=== PATIENT | male | born 1970 | race Caucasian/White ===

== ENCOUNTER 2024-06-25 11:44 | Emergency (ER) | payer SELFPAY ==
[~2024-06-25] VITALS: Ht 180.3 cm; Wt 100.0 kg
[2024-06-25 11:50] VITALS: O2SAT 100
[2024-06-25] MEDS ORDERED: FLUORESCEIN SODIUM 1MG/STRIP LEFTEYE ONE (15:45)
[2024-06-25] MEDS ORDERED: TETRACAINE 0.5% OPHTH DROPS 4ML LEFTEYE ONE (15:45)
[2024-06-25] MEDS ORDERED: TOBR3.5O LEFTEYE (16:04)
[2024-06-25] MEDS ORDERED: PROP1DRO2 MT (16:07)
[2024-06-25 16:40] VITALS: BP 140/91; PULSE 64; RESP 18; TEMP 36.8; O2SAT 96
== END 2024-06-25 16:41 | disposition home or self-care (01) ==
LOC: ER 11:44
DX: H57.89 Other specified disorders of eye and adnexa (principal); E11.9 Type 2 diabetes mellitus without complications; I10 Essential (primary) hypertension
CPT/HCPCS: 99283